=== PATIENT | male | born 1965 | race Caucasian/White ===

== ENCOUNTER 2016-10-25 15:25 | Emergency (ER) | payer OTHER ==
[2016-10-25 15:25] VITALS: BMI 27.1
--- NOTE | 2016-10-25 15:36 | ED PDOC ---
Arrival/HPI - General Time Seen by Provider: 10/25/16 15:26 Historian: Patient - History of Present Illness Narrative History of Present Illness (Text): 10/25/16 15:52 51 year old male who denies any past medical history presents to the emergency department with left sided chest pain for the past five days. Patient reports mechanical fall two weeks ago, unsure if related. pt states sharp pain under left costal margin, directly over site that was injured. Denies fever or shortness of breath. 10/25/16 17:24 Time/Duration: > week Symptom Onset: Gradual Symptom Course: Unchanged Modifying Factors (Text): None Associated Symptoms (Text): None Past Medical History - Provider Review Nursing Documentation Reviewed: Yes - Infectious Disease Hx of Infectious Diseases: None - Tetanus Immunization Tetanus Immunization: Unknown - Past Medical History Past Medical History: No Previous - Musculoskeletal/Rheumatological Hx Falls: No - Genitourinary/Gynecological Hx Prostate Problems: Yes (Prostatitis 5yrs ago) Hx Urinary Tract Infection: Yes - Psychiatric Hx Depression: No Hx Emotional Abuse: No Hx Physical Abuse: No Hx Substance Use: No - Past Surgical History Past Surgical History: No Previous - Anesthesia Hx Anesthesia: No - Suicidal Assessment Feels Threatened In Home Enviroment: No Family/Social History - Physician Review Nursing Documentation Reviewed: Yes Family/Social History: Unknown Family HX Smoking Status: Unknown If Ever Smoked Hx Alcohol Use: Yes (Occasional) Hx Substance Use: No Allergies/Home Meds Allergies/Adverse Reactions: Allergies No Known Allergies Allergy (Verified 10/25/16 15:34) Home Medications: Home Meds Medication Instructions Recorded Confirmed No Known Home Med 10/25/16 10/25/16 Review of Systems - Physician Review All systems were reviewed & negative as marked: Yes - Review of Systems Constitutional: absent: Fevers Respiratory: absent: SOB Cardiovascular: Chest Pain Gastrointestinal: absent: Abdominal Pain Physical Exam Vital Signs Reviewed: Yes Vital Signs Temp Pulse Resp BP Pulse Ox 10/25/16 17:38 98.8 F 72 16 136/84 100 10/25/16 15:40 99.0 F 78 17 129/85 98 Temperature: Afebrile Blood Pressure: Normal Pulse: Regular Respiratory Rate: Normal Appearance: Positive for: Well-Appearing, Non-Toxic, Comfortable Pain Distress: None Mental Status: Positive for: Alert and Oriented X 3 - Systems Exam Head: Present: Atraumatic, Normocephalic Pupils: Present: PERRL Extroacular Muscles: Present: EOMI Conjunctiva: Present: Normal Mouth: Present: Moist Mucous Membranes Neck: Present: Normal Range of Motion Respiratory/Chest: Present: Clear to Auscultation, Good Air Exchange, Tender to Palpation (Left sided point tenderness). No: Respiratory Distress, Accessory Muscle Use Cardiovascular: Present: Regular Rate and Rhythm, Normal S1, S2. No: Murmurs Abdomen: Present: Normal Bowel Sounds. No: Tenderness, Distention, Peritoneal Signs Back: Present: Normal Inspection Upper Extremity: Present: Normal Inspection. No: Cyanosis, Edema Lower Extremity: Present: Normal Inspection. No: Edema Neurological: Present: GCS=15, CN II-XII Intact, Speech Normal Skin: Present: Warm, Dry, Normal Color. No: Rashes Psychiatric: Present: Alert, Oriented x 3, Normal Insight, Normal Concentration Medical Decision Making ED Course and Treatment: Impression: 51 year old male who denies any past medical history presents to the emergency department with left sided chest pain for the past five days. Differential Diagnosis include but are not limited to: Plan: -- EKG, Chest X-ray -- Labs -- Reassess and disposition Prior Visits: Notes and results from previous visits were reviewed. Patient last seen in ED on 05/13/16 for chest pain and discharged home. Progress Notes: 10/25/16 17:27 pt reassessed. pain free. atypical pain. ekg wnl, trop neg. imaging as read by me. stable for d/c - Lab Interpretations Lab Results: 10/25/16 16:15 10/25/16 16:15 Lab Results 10/25/16 16:15: WBC 5.7 D, RBC 4.51, Hgb 15.1, Hct 42.2, MCV 93.6, MCH 33.5, MCHC 35.8, RDW 12.3, Plt Count 158, MPV 9.2, Gran % 67.3, Lymph % (Auto) 26.4, [place] % (Auto) 5.4, Eos % (Auto) 0.7 L, Baso % (Auto) 0.2, Gran # 3.84, Lymph # 1.5, [place] # 0.3, Eos # 0.0, Baso # 0.01, Sodium 138, Potassium 4.3, Chloride 103 , Carbon Dioxide 26, Anion Gap 13, BUN 17, Creatinine 0.9, Est GFR ( Amer ) > 60, Est GFR (Non-Af Amer) > 60, Random Glucose 97, Calcium 9.0, Magnesium 2.1, Total Bilirubin 0.7, AST 35, ALT 44, Alkaline Phosphatase 65, Lactate Dehydrogenase 500, Total Creatine Kinase 169, Troponin I < 0.01, Total Protein 7.7, Albumin 4.3, Globulin 3.4, Albumin/Globulin Ratio 1.3 - RAD Interpretation Radiology Orders: 10/25/16 15:44 RIBS LEFT & PA CHEST [RAD] Stat - EKG Interpretation EKG Interpretation (Text): EKG shows NSR at [address]/T wave changes Interpreted by ED Physician: Yes Type: 12 lead EKG - Medication Orders Current Medication Orders: Discontinued Medications Aspirin (Aspirin) 325 mg PO STAT STA Stop: 10/25/16 15:44 Last Admin: 10/25/16 16:24 Dose: 325 MG - Scribe Statement The provider has reviewed the documentation as recorded by the Clara Aragon Provider Scribe Attestation: All medical record entries made by the Clara were at my direction and personally dictated by me. I have reviewed the chart and agree that the record accurately reflects my personal performance of the history, physical exam, medical decision making, and the department course for this patient. I have also personally directed, reviewed, and agree with the discharge instructions and disposition. Disposition/Present on Arrival - Present on Arrival Any Indicators Present on Arrival: No History of DVT/PE: No History of Uncontrolled Diabetes: No Urinary Catheter: No History Surgical Site Infection Following: None - Disposition Have Diagnosis and Disposition been Completed?: Yes Diagnosis: Chest pain Disposition: HOME/ ROUTINE Disposition Time: 17:27 Condition: STABLE Discharge Instructions (ExitCare): Chest Pain (ED), Rib Contusion (ED) Print Language: GEORGI[place] Additional Instructions: please follow up with your doctor/clinic and specialist. . return to er with worsening symptoms or concerns Referrals: PCP,NO [Primary Care Provider] - Follow up with primary [facility] [place] [Outside] - Follow up with primary [facility] [Outside] - Follow up with primary Ignacio Linton MD [Staff Provider] - Follow up with primary
[2016-10-25 16:27] LABS: ADD MANUAL DIFF? NO
[2016-10-25 16:33] LABS: BASO # 0.01 K/mm3 (0.0-2.0); BASO % 0.2 % (0.0-3.0); EOS % 0.7 % (1.5-5.0); GRAN # 3.84 (1.4-6.5); GRAN % 67.3 % (50.0-68.0); HEMATOCRIT 42.2 % (42.0-52.0); LYMPH # 1.5 (1.2-3.4); LYMPH % 26.4 % (22.0-35.0); MEAN CELL VOLUME 93.6 fL (80.0-105.0); MEAN CORPUSCULAR HEMOGLOBIN 33.5 pg (25.0-35.0); MEAN CORPUSCULAR HGB CONC 35.8 g/dl (31.0-37.0); MEAN PLATELET VOLUME 9.2 fl (7.0-11.0); MONO # 0.3 (0.1-0.6); MONO % 5.4 % (1.0-6.0); PLATELET COUNT 158 10^3/uL (120.0-450.0); RED CELL DISTRIBUTION WIDTH 12.3 % (11.5-14.5); WHITE BLOOD COUNT 5.7 10^3/ul (4.5-11.0)
[2016-10-25 16:42] LABS: ALB/GLOB RATIO 1.3 (1.1-1.8); ALKALINE PHOSPHATASE 65 U/L (38-133); ALT/SGPT 44 U/L (7-56); AST/SGOT 35 U/L (15-59); BILIRUBIN,TOTAL 0.7 mg/dL (0.2-1.3); BLOOD UREA NITROGEN 17 mg/dL (7-21); CARBON DIOXIDE 26 mmol/L (21-33); CHLORIDE 103 mmol/L (98-107); GFR AFRICAN-AMERICAN > 60; GLUCOSE,RANDOM 97 mg/dL (70-110); MAGNESIUM 2.1 mg/dL (1.7-2.2); POTASSIUM 4.3 mmol/L (3.6-5.0); SODIUM 138 mmol/L (132-148); TOTAL PROTEIN 7.7 g/dL (5.8-8.3)
[2016-10-25 17:14] LABS: TROPONIN I < 0.01 ng/mL
[2016-10-25 17:38] VITALS: BP 136/84; PULSE 72; RESP 16; TEMP 98.8; O2SAT 100
--- NOTE | 2016-10-26 08:12 | RAD ---
PROCEDURE: Radiographs of the Chest and Left Ribs. HISTORY: fall COMPARISON: None available. TECHNIQUE: Frontal radiograph of the chest and multiple oblique radiographs of the left ribs were obtained. FINDINGS: LEFT RIBS: No fracture or focal lesion visualized. LUNGS: Clear. PLEURA: No pneumothorax or pleural fluid. CARDIOVASCULAR: Normal sized heart. No pulmonary vascular congestion. OTHER FINDINGS: None. IMPRESSION: Unremarkable radiographs of the chest and left ribs. No left rib fracture.
--- NOTE | 2016-10-26 11:13 | CARD ---
APPROVED REPORT EKG Measurement Heart [id number] <Conclusion> Normal sinus rhythm Normal ECG No change
== END 2016-10-25 17:39 | disposition home or self-care (01) ==
LOC: ED 15:25
DX: R07.9 Chest pain, unspecified (principal)

== ENCOUNTER 2017-07-04 21:02 | Emergency (ER) | payer OTHER ==
[2017-07-04 21:02] VITALS: BMI 27.1
[2017-07-04 21:13] VITALS: TEMP 98.4
--- NOTE | 2017-07-04 22:05 | ED PDOC ---
Arrival/HPI - General Chief Complaint: Male Genitourinary Time Seen by Provider: 07/04/17 21:17 Historian: Patient, [employer] (#[id number]) - History of Present Illness Narrative History of Present Illness (Text): 07/04/17 22:05 52 year old male, whose past medical history includes prostatitis, who presents to the emergency department complaining of painful urination for the past two days. Patient has been self administering two dosage of Augmentin and [place] Patient is not sexually active. Patient reports slight penile discharge, but denies any rectal pain, fever, chills, chest pain, shortness of breath, nausea, vomiting, diarrhea, back pain, neck pain, headache, dizziness, or any other complaints. [employer]: #[id number] Time/Duration: Other (2 days) Symptom Onset: Gradual Symptom Course: Unchanged Activities at Onset: Light Context: Home Past Medical History - Provider Review Nursing Documentation Reviewed: Yes - Infectious Disease Hx of Infectious Diseases: None - Tetanus Immunization Tetanus Immunization: Unknown - Past Medical History Past Medical History: No Previous - Cardiac Hx Cardiac Disorders: Yes Hx Hypertension: Yes - Pulmonary Hx Respiratory Disorders: No - Neurological Hx Neurological Disorder: No - HEENT Hx HEENT Disorder: No - Renal Hx Renal Disorder: No - Endocrine/Metabolic Hx Endocrine Disorders: No - Hematological/Oncological Hx Blood Disorders: No - Integumentary Hx Dermatological Disorder: No - Musculoskeletal/Rheumatological Hx Musculoskeletal Disorders: No Hx Falls: No - Gastrointestinal Hx Gastrointestinal Disorders: No Hx Bowel Surgery: No - Genitourinary/Gynecological Hx Genitourinary Disorders: Yes Hx Prostate Problems: Yes (Prostatitis 5yrs ago) Hx Urinary Tract Infection: Yes - Psychiatric Hx Psychophysiologic Disorder: No Hx Depression: No Hx Emotional Abuse: No Hx Physical Abuse: No Hx Substance Use: No - Past Surgical History Past Surgical History: No Previous - Anesthesia Hx Anesthesia: No - Suicidal Assessment Feels Threatened In Home Enviroment: No Family/Social History - Physician Review Nursing Documentation Reviewed: Yes Family/Social History: No Known Family HX Smoking Status: Never Smoked Hx Alcohol Use: Yes (Occasional) Frequency of alcohol use: Socially Hx Substance Use: No Allergies/Home Meds Allergies/Adverse Reactions: Allergies No Known Allergies Allergy (Verified 07/04/17 21:04) Review of Systems - Physician Review All systems were reviewed & negative as marked: Yes - Review of Systems Constitutional: Normal. absent: Fevers, Other (Chills) Eyes: Normal ENT: Normal Respiratory: Normal. absent: SOB Cardiovascular: Normal. absent: Chest Pain Gastrointestinal: Normal. absent: Diarrhea, Nausea, Vomiting Genitourinary Male: Dysuria, Other (Penile discharge ) Musculoskeletal: Normal. absent: Back Pain, Neck Pain Skin: Normal Neurological: Normal. absent: Headache, Dizziness Endocrine: Normal Hemo/Lymphatic: Normal Psychiatric: Normal Physical Exam Vital Signs Reviewed: Yes Vital Signs Temp Pulse Resp BP Pulse Ox 07/04/17 21:06 98.4 F 90 16 133/89 97 Temperature: Afebrile Blood Pressure: Normal Pulse: Regular Respiratory Rate: Normal Appearance: Positive for: Well-Appearing, Non-Toxic Pain Distress: None Mental Status: Positive for: Alert and Oriented X 3 - Systems Exam Head: Present: Atraumatic, Normocephalic Pupils: Present: PERRL Extroacular Muscles: Present: EOMI Conjunctiva: Present: Normal Ears: Present: Normal Mouth: Present: Moist Mucous Membranes Pharnyx: Present: Normal Nose (External): Present: Atraumatic Nose (Internal): Present: Normal Inspection Neck: Present: Normal Range of Motion Respiratory/Chest: Present: Clear to Auscultation, Good Air Exchange. No: Respiratory Distress, Accessory Muscle Use Cardiovascular: Present: Regular Rate and Rhythm, Normal S1, S2. No: Murmurs Abdomen: Present: Normal Bowel Sounds. No: Tenderness, Distention, Peritoneal Signs Rectal: Present: Other (mild prostate bogginess wo tenderness.) Genitourinary Male: Present: Normal External Genitalia, Penile Discharge, Other (Prostate bogginess) Back: Present: Normal Inspection Upper Extremity: Present: Normal Inspection. No: Cyanosis, Edema Lower Extremity: Present: Normal Inspection. No: Edema Neurological: Present: GCS=15, CN II-XII Intact, Speech Normal Skin: Present: Warm, Dry, Normal Color. No: Rashes Psychiatric: Present: Alert, Oriented x 3, Normal Insight, Normal Concentration Medical Decision Making ED Course and Treatment: 07/04/17 22:05 Impression: 52 year old male presents complaining of dysuria for the past 2 days. Plan: -- Chlamydia/GC RNA, TMA -- Rocephin -- Zithromax -- Urine Culture -- Urinalysis -- Reassess and disposition Progress Notes: 07/04/17 22:50 52 year old male, whose past medical history includes prostatitis, who presents to the emergency department complaining of painful urination for the past two days. Patient has been self administering two dosage of Augmentin and ran out of medication [place]. Patient is not sexually active. Patient reports slight penile discharge, but denies any rectal pain, fever, chills, chest pain, shortness of breath, nausea, vomiting, diarrhea, back pain, neck pain, headache, dizziness, or any other complaints. You were otherwise breathing easily, smiling, good strength/sensation, walking easily, clear lungs, no abdomen tenderness, mild penile white discharge without penis/ scrotum/testicle pain or tenderness and noted good position and no prostate tenderness but mild bogginess, no fever temp 98.4, stable heart rate 90, stable breathing rate 16, excellent oxygen level 97% room air, elevated blood pressure 133/89 which we recommend repeat in 2-3 days primary care office to determine further treatment, urine test with sign of infection due to your symptoms, ciprofloxcin and azithromycin done in the ED with improvement but you refused ceftriaxone and stated you will followup primary care to get final results and determine further treatment, counselled you wanted sexual disease testing and preventative treatment at this time for gonorrhea/chlamydia azithromycin and thus discharged home. 1. Recommend ciprofloxacin as directed for urine infection. 2. Recommend pyridum as directed for urinary discomfort. 3. Recommend follow-up primary care 2-3 days to review symptoms, get final urine results and sexual disease testing results to determine further treatment. 4. If any worsening pain, fever, chills, nausea, vomiting, difficulty breathing, numbness, loss of limb function, pain with urination or any medical condition then return to the ED. 07/04/17 22:55 07/05/17 00:38 - Lab Interpretations Lab Results: Lab Results 07/04/17 22:57: Urine Color Yellow, Urine Appearance Clear, Urine pH 6.0, Ur Specific [place] 1.025, Urine Protein Negative, Urine Glucose (UA) Negative, Urine Ketones Negative, Urine Blood Trace-intact H, Urine Nitrate Negative, Urine Bilirubin Negative, Urine Urobilinogen 0.2, Ur Leukocyte Esterase Trace H , Urine RBC 1 - 3, Urine WBC 10 - 15, Ur Epithelial Cells 1 - 3, Urine Bacteria Rare I have reviewed the lab results: Yes - Medication Orders Current Medication Orders: Discontinued Medications Azithromycin (Zithromax) 1,000 mg PO STAT STA PRN Reason: Protocol Stop: 07/04/17 22:48 Last Admin: 07/04/17 23:10 Dose: 1,000 mg Ceftriaxone Sodium (Rocephin) 250 mg IM STAT STA PRN Reason: Protocol Stop: 07/04/17 22:48 Last Admin: 07/04/17 23:10 Dose: Not Given Non-Admin Reason: Patient Refused Ciprofloxacin (Cipro) 500 mg PO ONCE STA PRN Reason: Protocol Stop: 07/04/17 23:32 Last Admin: 07/04/17 23:40 Dose: 500 mg - Scribe Statement The provider has reviewed the documentation as recorded by the Clara Arenas Provider Scribe Attestation: All medical record entries made by the Juanibkevin were at my direction and personally dictated by me. I have reviewed the chart and agree that the record accurately reflects my personal performance of the history, physical exam, medical decision making, and the department course for this patient. I have also personally directed, reviewed, and agree with the discharge instructions and disposition. Disposition/Present on Arrival - Present on Arrival Any Indicators Present on Arrival: No History of DVT/PE: No History of Uncontrolled Diabetes: No Urinary Catheter: No History of Decub. Ulcer: No History Surgical Site Infection Following: None - Disposition Have Diagnosis and Disposition been Completed?: Yes Diagnosis: UTI (urinary tract infection), Acute prostatitis Disposition: HOME/ ROUTINE Disposition Time: 00:40 Patient Plan: Discharge Condition: IMPROVED Print Language: BOLIVIAN Additional Instructions: 52 year old male, whose past medical history includes prostatitis, who presents to the emergency department complaining of painful urination for the past two days. Patient has been self administering two dosage of Augmentin and ran out of medication [place]. Patient is not sexually active. Patient reports slight penile discharge, but denies any rectal pain, fever, chills, chest pain, shortness of breath, nausea, vomiting, diarrhea, back pain, neck pain, headache, dizziness, or any other complaints. You were otherwise breathing easily, smiling, good strength/sensation, walking easily, clear lungs, no abdomen tenderness, mild penile white discharge without penis/ scrotum/testicle pain or tenderness and noted good position and no prostate tenderness but mild bogginess, no fever temp 98.4, stable heart rate 90, stable breathing rate 16, excellent oxygen level 97% room air, elevated blood pressure 133/89 which we recommend repeat in 2-3 days primary care office to determine further treatment, urine test with sign of infection due to your symptoms, ciprofloxcin and azithromycin done in the ED with improvement but you refused ceftriaxone and stated you will followup primary care to get final results and determine further treatment, counselled you wanted sexual disease testing and initally wanted preventative treatment at this time thus azithromycin given but then you didn't want ceftriaxone and stated will followup primary care to get final result and determine further treatment and thus discharged home with urinary tract infection and due to your mildly boggy prostate and history of prostatitis will treat for extended period of time. 1. Recommend ciprofloxacin as directed for urine infection. 2. Recommend pyridum as directed for urinary discomfort. 3. Recommend follow-up primary care 2-3 days to review symptoms, get final urine results and sexual disease testing results to determine further treatment and determine for extended treatment of prostatitis. 4. If any worsening pain, fever, chills, nausea, vomiting, difficulty breathing, numbness, loss of limb function, pain with urination or any medical condition then return to the ED. Prescriptions: Ciprofloxacin 500 mg PO Q12 14 Days #28 ml Referrals: [place], [Primary Care Provider] - Follow up with primary Forms: [employer] ([place])
[2017-07-04] MEDS ORDERED: cefTRIAXone (Rocephin) 250 mg Inj IM STA (22:47)
[2017-07-04 23:06] LABS: URINE BILIRUBIN NEGATIVE (NEGATIVE); URINE BLOOD TRACE-INTACT (NEGATIVE); URINE GLUCOSE (UA) NEGATIVE (NEGATIVE); URINE KETONE NEGATIVE (NEGATIVE); URINE LEUKOCYTE ESTERASE TRACE Leu/uL (NEGATIVE); URINE PROTEIN NEGATIVE mg/dL (<30 mg/dL); URINE UROBILINOGEN 0.2 E.U./dL (<1 E.U./dL)
[2017-07-04 23:07] LABS: URINE APPEARANCE CLEAR (CLEAR); URINE COLOR YELLOW (YELLOW)
[2017-07-04] MEDS ORDERED: Lidocaine 1% Inj (20ml) ONE (23:12)
[2017-07-04 23:20] LABS: URINE BACTERIA RARE (NEG)
[2017-07-05 01:57] VITALS: BP 130/84; PULSE 84; RESP 17; O2SAT 98
== END 2017-07-05 00:51 | disposition home or self-care (01) ==
LOC: ED 21:02
DX: N39.0 Urinary tract infection, site not specified (principal); N41.0 Acute prostatitis; I10 Essential (primary) hypertension

== ENCOUNTER 2017-10-22 22:14 | Emergency (ER) | payer OTHER ==
[2017-10-22 22:14] VITALS: BMI 27.1
[2017-10-22 23:12] VITALS: BP 121/80; PULSE 72; RESP 18; TEMP 98.3; O2SAT 98
--- NOTE | 2017-10-22 23:19 | ED PDOC ---
Arrival/HPI - General Chief Complaint: Abdominal Pain Time Seen by Provider: 10/22/17 23:10 Historian: Patient - History of Present Illness Narrative History of Present Illness (Text): 10/22/17 23:19 Johnson Jones is a 52 year old male, whose past medical history includes gastritis and anxiety, who presents to the emergency department complaining of abdominal pain. Patient states he has been experiencing intermittent epigastric pain for the past week. Patient states symptoms are similar to previous episodes of gastritis, but denies any relief after taking Omeprazole and over the counter antacids at home. Patient denies any history of alcohol abuse or tobacco abuse. Patient denies any fever, chills, chest pain, shortness of breath , nausea, vomiting, diarrhea, urinary symptoms, back pain, neck pain, headache, dizziness, or any other complaints. Time/Duration: 1 week Symptom Onset: Gradual Symptom Course: Unchanged Activities at Onset: Light Context: Home Past Medical History - Provider Review Nursing Documentation Reviewed: Yes - Infectious Disease Hx of Infectious Diseases: None - Tetanus Immunization Tetanus Immunization: Unknown - Past Medical History Past Medical History: No Previous - Cardiac Hx Cardiac Disorders: Yes Hx Hypertension: Yes - Pulmonary Hx Respiratory Disorders: No - Neurological Hx Neurological Disorder: No - HEENT Hx HEENT Disorder: No - Renal Hx Renal Disorder: No - Endocrine/Metabolic Hx Endocrine Disorders: No - Hematological/Oncological Hx Blood Disorders: No - Integumentary Hx Dermatological Disorder: No - Musculoskeletal/Rheumatological Hx Musculoskeletal Disorders: No Hx Falls: No - Gastrointestinal Hx Gastrointestinal Disorders: No Hx Bowel Surgery: No - Genitourinary/Gynecological Hx Genitourinary Disorders: Yes Hx Prostate Problems: Yes (Prostatitis 5yrs ago) Hx Urinary Tract Infection: Yes - Psychiatric Hx Psychophysiologic Disorder: No Hx Depression: No Hx Emotional Abuse: No Hx Physical Abuse: No Hx Substance Use: No - Past Surgical History Past Surgical History: No Previous - Anesthesia Hx Anesthesia: No Hx Anesthesia Reactions: No Hx Malignant Hyperthermia: No - Suicidal Assessment Feels Threatened In Home Enviroment: No Family/Social History - Physician Review Nursing Documentation Reviewed: Yes Family/Social History: Unknown Family HX Smoking Status: Never Smoked Hx Alcohol Use: Yes (Occasional) Hx Substance Use: No Allergies/Home Meds Allergies/Adverse Reactions: Allergies No Known Allergies Allergy (Verified 10/22/17 23:10) Review of Systems - Physician Review All systems were reviewed & negative as marked: Yes - Review of Systems Constitutional: Normal. absent: Fevers Eyes: Normal ENT: Normal Respiratory: Normal. absent: SOB, Cough Cardiovascular: Normal. absent: Chest Pain Gastrointestinal: Abdominal Pain. absent: Diarrhea, Vomiting Genitourinary Male: Normal. absent: Dysuria, Frequency, Hematuria, Urinary Output Changes Musculoskeletal: Normal. absent: Back Pain, Neck Pain Skin: Normal. absent: Rash Neurological: Normal. absent: Headache, Dizziness Endocrine: Normal Hemo/Lymphatic: Normal Psychiatric: Normal Physical Exam Vital Signs Reviewed: Yes Vital Signs Temp Pulse Resp BP Pulse Ox 10/22/17 23:10 98.3 F 72 18 121/80 98 Temperature: Afebrile Blood Pressure: Normal Pulse: Regular Respiratory Rate: Normal Appearance: Positive for: Well-Appearing, Non-Toxic, Comfortable Pain Distress: None Mental Status: Positive for: Alert and Oriented X 3 - Systems Exam Head: Present: Atraumatic, Normocephalic Pupils: Present: PERRL Extroacular Muscles: Present: EOMI Conjunctiva: Present: Normal Mouth: Present: Moist Mucous Membranes Neck: Present: Normal Range of Motion Respiratory/Chest: Present: Clear to Auscultation, Good Air Exchange. No: Respiratory Distress, Accessory Muscle Use Cardiovascular: Present: Regular Rate and Rhythm, Normal S1, S2. No: Murmurs Abdomen: Present: Tenderness (Epigastric tenderness). No: Distention, Peritoneal Signs Back: Present: Normal Inspection Upper Extremity: Present: Normal Inspection. No: Cyanosis, Edema Lower Extremity: Present: Normal Inspection. No: Edema Neurological: Present: GCS=15, CN II-XII Intact, Speech Normal Skin: Present: Warm, Dry, Normal Color. No: Rashes Psychiatric: Present: Alert, Oriented x 3, Normal Insight, Normal Concentration Medical Decision Making ED Course and Treatment: 10/22/17 23:19 Impression: 52 year old male complaining of epigastric abdominal pain for 1 week. Differential Diagnosis included but are not limited to: gastritis Plan: -- EKG -- Labs, cardiac enzymes, lipase, amylase -- Urinalysis -- IV fluids -- Protonix -- Pepcid -- Reassess and disposition Progress Notes: 10/23/17 00:27 Pt eloped from ER. - Medication Orders Current Medication Orders: Discontinued Medications Famotidine (Pepcid) 20 mg IVP STAT STA Stop: 10/22/17 23:32 Pantoprazole Sodium 40 mg/ (Sodium Chloride) 100 mls @ 400 mls/hr IV STAT STA Stop: 10/22/17 23:45 Sodium Chloride (Sodium Chloride 0.9%) 1,000 mls @ 100 mls/hr IV .Q10H STA Stop: 10/23/17 09:30 - Scribe Statement The provider has reviewed the documentation as recorded by the Clara Leavitt Provider Scribe Attestation: All medical record entries made by the Scribe were at my direction and personally dictated by me. I have reviewed the chart and agree that the record accurately reflects my personal performance of the history, physical exam, medical decision making, and the department course for this patient. I have also personally directed, reviewed, and agree with the discharge instructions and disposition. Disposition/Present on Arrival - Present on Arrival Any Indicators Present on Arrival: No History of DVT/PE: No History of Uncontrolled Diabetes: No Urinary Catheter: No History of Decub. Ulcer: No History Surgical Site Infection Following: None - Disposition Have Diagnosis and Disposition been Completed?: Yes Diagnosis: Abdominal pain Disposition: ELOPEMENT - ER ONLY Disposition Time: 23:50 Condition: UNKNOWN Referrals: PCP,NO [Primary Care Provider] - Follow up with primary Forms: That{img} ([place])
[2017-10-22] MEDS ORDERED: Sodium Chloride 0.9% 1,000 ML IV STA (23:31)
[2017-10-22] MEDS ORDERED: Pantoprazole 40 MG in Sodium Chloride 0.9% 100 ML IV STA (23:31)
== END 2017-10-22 23:50 | disposition left against medical advice (07) ==
LOC: ED 22:14
DX: R10.9 Unspecified abdominal pain (principal)